=== PATIENT | male | born 1985 | race Caucasian/White ===

== ENCOUNTER 2018-07-01 15:02 | Emergency (ER) | payer MEDICAID, OTHER ==
[~2018-07-01] VITALS: Ht 165.1 cm; Wt 63.6 kg
[~2018-07-01 15:02] MED LIST: OLAN5TAB2 PO; PARO37.512 PO
[2018-07-01] MEDS ORDERED: PARO20TA24 PO (15:20)
[2018-07-01 17:03] VITALS: BP 120/68
== END 2018-07-01 17:13 | disposition home or self-care (01) ==
LOC: EMS 15:04
DX: F20.9 Schizophrenia, unspecified (principal); F32.9 Major depressive disorder, single episode, unspecified; F17.210 Nicotine dependence, cigarettes, uncomplicated; Z76.0 Encounter for issue of repeat prescription
CPT/HCPCS: 99406

== ENCOUNTER 2020-01-24 02:58 | Emergency (ER) | payer OTHER ==
[~2020-01-24] VITALS: Ht 170.2 cm; Wt 63.6 kg
[~2020-01-24 02:58] MED LIST changes: +PARO-38 PO; -PARO37.512 PO
[2020-01-24] MEDS ORDERED: PERTUSS(ACELL),DIPH,TET VAC/PF 0.5 ML VIAL IM ONE (03:45)
[2020-01-24] MEDS ORDERED: BACITRACIN 0.9 GM PACKET OINTMENT TP ONE (05:15)
[2020-01-24 05:41] VITALS: BP 136/74
== END 2020-01-24 05:40 | disposition home or self-care (01) ==
LOC: EMS 03:01
DX: S00.01XA Abrasion of scalp, initial encounter (principal); M25.532 Pain in left wrist; F32.9 Major depressive disorder, single episode, unspecified; F20.9 Schizophrenia, unspecified; F17.210 Nicotine dependence, cigarettes, uncomplicated; Y35.811A Legal intervention involving manhandling, law enforcement official injured, initial encounter; Y93.89 Activity, other specified; Y92.89 Other specified places as the place of occurrence of the external cause; Y99.8 Other external cause status
CPT/HCPCS: 70450; 72125; 90471; 90715

== ENCOUNTER 2020-11-29 12:59 | Emergency (ER) | payer OTHER ==
[~2020-11-29] VITALS: Ht 167.6 cm; Wt 104.5 kg
[~2020-11-29 12:59] MED LIST changes: -OLAN5TAB2 PO; +OLAN5TAB52 PO
[2020-11-29 13:20] VITALS: BP 112/68
== END 2020-11-29 14:38 | disposition home or self-care (01) ==
LOC: EMS 12:59
DX: H60.91 Unspecified otitis externa, right ear (principal); F32.9 Major depressive disorder, single episode, unspecified; F20.9 Schizophrenia, unspecified; F17.210 Nicotine dependence, cigarettes, uncomplicated; Z79.899 Other long term (current) drug therapy
CPT/HCPCS: 99283

== ENCOUNTER 2020-11-29 19:45 | Inpatient (IN) | payer MEDICAID, OTHER ==
[~2020-11-29] VITALS: Ht 167.6 cm; Wt 61.0 kg
[2020-11-29 21:12] LABS: BASOPHILS % (AUTO) 0.2 % (0.0-2.0); EOSINOPHILS % (AUTO) 0.2 % (1.0-6.0); HEMATOCRIT 33.3 % (41-53); HEMOGLOBIN 10.9 g/dL (13.5-17.5); LYMPHOCYTES # (AUTO) 1.7 K/uL (1.0-4.8); LYMPHOCYTES % (AUTO) 30.2 % (22.0-44.0); MEAN CORPUSCULAR HEMOGLOBIN 28.7 pg (26.0-34.0); MEAN CORPUSCULAR HGB CONC 32.6 G/dL (31.0-37.0); MEAN CORPUSCULAR VOLUME 88 fL (80-100); MONOCYTES # (AUTO) 0.4 K/uL (0.1-1.0); MONOCYTES % (AUTO) 6.4 % (2.0-9.0); NEUTROPHILS # (AUTO) 3.5 K/uL (1.8-7.7); PLATELET COUNT (AUTO) 170 K/uL (150-450); RED CELL DISTRIBUTION WIDTH 15.9 % (11.5-14.5)
[2020-11-29] MEDS ORDERED: ZOLPIDEM TARTRATE 10 MG TABLET PO PRN (21:15)
[2020-11-29] MEDS ORDERED: OLANZapine 5 MG RAPDIS TABLET PO PRN (21:15)
[2020-11-29 21:25] LABS: ANION GAP 7 mmol/L (8-16); CARBON DIOXIDE 30 mmol/L (22-29); CHLORIDE 106 mmol/L (98-107); GLOMERULAR FILTR. RATE CALC > 60 mL/min (>60); GLUCOSE,RANDOM 131 mg/dL (70-110); POTASSIUM 3.6 mmol/L (3.5-5.1); SODIUM SERUM 143 mmol/L (136-145); UREA NITROGEN, BLOOD 17 mg/dL (7-18)
[2020-11-29 21:31] LABS: ALANINE AMINOTRANSFERASE 18 U/L (12-78); ALBUMIN 3.3 g/dL (3.4-5.0); ALKALINE PHOSPHATASE 100 U/L (46-116); ASPARTATE AMINOTRANSFERASE 15 U/L (15-37); BILIRUBIN,TOTAL 0.1 mg/dL (0.1-1.0); TOTAL PROTEIN, SERUM 6.5 g/dL (6.4-8.2)
[2020-11-29 21:56] LABS: AMPHET/METH SCREEN,URINE NEGATIVE (NEGATIVE); BARBITURATE SCREEN, URINE NEGATIVE (NEGATIVE); BENZODIAZEPINES SCREEN,URINE NEGATIVE (NEGATIVE); CANNABINOID SCREEN,URINE POSITIVE (NEGATIVE); COCAINE SCREEN,URINE NEGATIVE (NEGATIVE); METHADONE SCREEN, URINE NEGATIVE (NEGATIVE); OPIATE SCREEN,URINE NEGATIVE (NEGATIVE)
[2020-11-29 22:08] LABS: PHENCYCLIDINE SCREEN,URINE NEGATIVE (NEGATIVE)
[2020-11-29 22:56] LABS: COVID AG,FIA SOURCE NASOPHARYNGEAL
[2020-11-30 06:40] VITALS: BP 121/81
[2020-11-30] MEDS ORDERED: BENZOCAINE/MENTHOL LOZENGE PO PRN (07:00)
[2020-11-30] MEDS ORDERED: DOCUSATE SODIUM 100 MG CAPSULE PO PRN (07:00)
[2020-11-30] MEDS ORDERED: ONDANSETRON HCL 4 MG TABLET PO PRN (07:00)
[2020-11-30] MEDS ORDERED: LOPERAMIDE HCL 2 MG CAPSULE PO PRN (07:00)
[2020-11-30] MEDS ORDERED: OMEPRAZOLE 20 MG CAPSULE PO PRN (07:00)
[2020-11-30] MEDS ORDERED: IBUPROFEN 600 MG TABLET PO PRN (07:00)
[2020-11-30] MEDS ORDERED: ALBUTEROL SULFATE HFA 90 MCG/PUFF 8 GM INHALER IH PRN (07:00)
[2020-11-30] MEDS ORDERED: ACETAMINOPHEN 325 MG TABLET PO PRN (07:00)
[2020-11-30] MEDS ORDERED: BACITRACIN 28 GM OINTMENT TP PRN (07:00)
[2020-11-30] MEDS ORDERED: CloNIDine HCL 0.1 MG TABLET PO PRN (07:00)
[2020-11-30] MEDS ORDERED: PETROLATUM,WHITE 28 GM JELLY TP PRN (07:00)
[2020-11-30] MEDS ORDERED: MAG HYDROX/AL HYDROX/SIMETH ES 30 ML SUSPENSION UDCUP PO PRN (07:00)
[2020-11-30] MEDS ORDERED: MAGNESIUM HYDROXIDE SUSPENSION 30 ML UDCUP PO PRN (07:00)
[2020-11-30] MEDS: LORazepam 2 MG TABLET PO PRN (09:36)
[2020-11-30 10:13] LABS: CHOL/HDL RATIO 3.1 (4.2-7.3)
[2020-11-30 10:20] VITALS: BP 107/71
[2020-11-30 10:22] VITALS: BP 107/71
[2020-11-30 16:16] VITALS: BP 124/72
[2020-12-01 06:55] VITALS: BP 106/65
[2020-12-01 08:19] VITALS: BP 111/70
[2020-12-01] MEDS: LORazepam 2 MG TABLET PO PRN (08:49)
[2020-12-01] MEDS ORDERED: OLAN10TA74 PO (11:46)
[2020-12-01 16:11] VITALS: BP 113/71
[2020-12-01] MEDS: OLANZapine 10 MG TABLET PO SCH (21:09)
[2020-12-02 06:29] VITALS: BP 99/62
[2020-12-02 08:19] VITALS: BP 114/64
[2020-12-02] MEDS: LORazepam 2 MG TABLET PO PRN (12:49)
[2020-12-02 16:18] VITALS: BP 108/66
[2020-12-02] MEDS: OLANZapine 10 MG TABLET PO SCH (20:27)
[2020-12-03 05:24] VITALS: BP 112/63
[2020-12-03 08:55] VITALS: BP 102/67
[2020-12-03 16:14] VITALS: BP 113/70
[2020-12-03] MEDS: OLANZapine 10 MG TABLET PO SCH (20:28)
[2020-12-04 02:03] VITALS: BP 139/89
[2020-12-04 10:01] VITALS: BP 113/76
[2020-12-04 16:12] VITALS: BP 101/66
[2020-12-04] MEDS: OLANZapine 10 MG TABLET PO SCH ×2 (20:36→20:45)
[2020-12-04] MEDS: LORazepam 2 MG TABLET PO PRN (21:13)
[2020-12-05 07:07] VITALS: BP 116/70
[2020-12-05] MEDS: LORazepam 2 MG TABLET PO PRN ×2 (08:31→18:14)
[2020-12-05 10:02] VITALS: BP 114/75
[2020-12-05] MEDS: NICOTINE 21 MG/24 HOUR PATCH TD PRN (10:09)
[2020-12-05 16:39] VITALS: BP 107/65
[2020-12-05] MEDS: OLANZapine 10 MG TABLET PO SCH (20:00)
[2020-12-06 06:33] VITALS: BP 93/64
[2020-12-06 08:28] VITALS: BP 126/81
[2020-12-06] MEDS: NICOTINE 21 MG/24 HOUR PATCH TD PRN (09:43)
[2020-12-06 16:25] VITALS: BP 111/66
[2020-12-06] MEDS: OLANZapine 10 MG TABLET PO SCH (20:10)
[2020-12-06] MEDS: LORazepam 2 MG TABLET PO PRN (20:47)
[2020-12-07 06:27] VITALS: BP 118/72
[2020-12-07 08:13] VITALS: BP 114/68
[2020-12-07] MEDS: LORazepam 2 MG TABLET PO PRN (08:20)
[2020-12-07 16:15] VITALS: BP 108/68
== END 2020-12-07 20:09 | disposition home or self-care (01) | DRG 750 ==
LOC: EMS 19:49 → B3A 11-30 02:29
PROVIDERS: ADMIT Psychiatry & Neurology Psychiatry; ATTEND Psychiatry & Neurology Psychiatry
DX: F20.9 Schizophrenia, unspecified (principal); F12.90 Cannabis use, unspecified, uncomplicated; F32.9 Major depressive disorder, single episode, unspecified; F41.9 Anxiety disorder, unspecified; G47.00 Insomnia, unspecified; K59.00 Constipation, unspecified; Z20.822 Contact with and (suspected) exposure to COVID-19; Z87.891 Personal history of nicotine dependence; Z79.899 Other long term (current) drug therapy
CPT/HCPCS: 80053; 80061; 85025; 99285; G0480

== ENCOUNTER 2022-01-13 05:47 | Inpatient (IN) | payer MEDICAID, OTHER ==
[~2022-01-13] VITALS: Ht 167.6 cm; Wt 57.6 kg
[~2022-01-13 05:47] MED LIST changes: +OLAN10TA74 PO; -OLAN5TAB52 PO; -PARO-38 PO
[2022-01-13] MEDS ORDERED: OLAN15TA36 PO (06:10)
[2022-01-13] MEDS ORDERED: PARO40TA72 PO (06:10)
[2022-01-13 06:25] LABS: COVID AG,FIA SOURCE NASOPHARYNGEAL
[2022-01-13 06:28] LABS: BASOPHILS % (AUTO) 0.3 % (0.0-2.0); EOSINOPHILS % (AUTO) 3.5 % (1.0-6.0); HEMATOCRIT 36.5 % (41-53); HEMOGLOBIN 11.9 g/dL (13.5-17.5); LYMPHOCYTES # (AUTO) 1.6 K/uL (1.0-4.8); LYMPHOCYTES % (AUTO) 15.2 % (22.0-44.0); MEAN CORPUSCULAR HGB CONC 32.7 G/dL (31.0-37.0); MEAN CORPUSCULAR VOLUME 86 fL (80-100); MONOCYTES # (AUTO) 0.2 K/uL (0.1-1.0); MONOCYTES % (AUTO) 2.1 % (2.0-9.0); NEUTROPHILS # (AUTO) 8.5 K/uL (1.8-7.7); NEUTROPHILS % (AUTO) 78.9 % (40.0-70.0); PLATELET COUNT (AUTO) 228 K/uL (150-450); RED BLOOD CELL COUNT(AUTO) 4.25 MIL/uL (4.50-5.90); RED CELL DISTRIBUTION WIDTH 16.7 % (11.5-14.5)
[2022-01-13] MEDS ORDERED: BACITRACIN 0.9 GM PACKET OINTMENT TP ONE (06:30)
[2022-01-13 06:54] LABS: ANION GAP 8 mmol/L (8-16); CALCIUM, TOTAL 8.9 mg/dL (8.8-10.5); CARBON DIOXIDE 28 mmol/L (22-29); CHLORIDE 107 mmol/L (98-107); CREATININE 1.25 mg/dL (0.60-1.30); GLUCOSE,RANDOM 112 mg/dL (70-110); POTASSIUM 3.5 mmol/L (3.5-5.1); SODIUM SERUM 143 mmol/L (136-145); UREA NITROGEN, BLOOD 12 mg/dL (7-18)
[2022-01-13 06:55] LABS: GLOMERULAR FILTR. RATE CALC > 60 mL/min (>60)
[2022-01-13 07:04] LABS: ALANINE AMINOTRANSFERASE 17 U/L (12-78); ALBUMIN 3.7 g/dL (3.4-5.0); ALKALINE PHOSPHATASE 128 U/L (46-116); ASPARTATE AMINOTRANSFERASE 12 U/L (15-37); BILIRUBIN,TOTAL 0.2 mg/dL (0.1-1.0); TOTAL PROTEIN, SERUM 7.3 g/dL (6.4-8.2)
[2022-01-13 10:53] LABS: AMPHET/METH SCREEN,URINE POSITIVE (NEGATIVE); BARBITURATE SCREEN, URINE NEGATIVE (NEGATIVE); BENZODIAZEPINES SCREEN,URINE NEGATIVE (NEGATIVE); CANNABINOID SCREEN,URINE POSITIVE (NEGATIVE); COCAINE SCREEN,URINE NEGATIVE (NEGATIVE); METHADONE SCREEN, URINE NEGATIVE (NEGATIVE); OPIATE SCREEN,URINE NEGATIVE (NEGATIVE)
[2022-01-13 10:54] LABS: PHENCYCLIDINE SCREEN,URINE NEGATIVE (NEGATIVE)
[2022-01-13] MEDS ORDERED: HALOPERIDOL 5 MG TABLET PO PRN (11:00)
[2022-01-13 13:13] VITALS: BP 117/84
[2022-01-13 17:38] VITALS: BP 104/67
[2022-01-13] MEDS ORDERED: OLANZapine 10 MG TABLET PO SCH (21:00)
[2022-01-13] MEDS: LORazepam 2 MG TABLET PO PRN (21:19)
[2022-01-14 08:47] VITALS: BP 112/69
[2022-01-14] MEDS ORDERED: LOPERAMIDE HCL 2 MG CAPSULE PO PRN (13:15)
[2022-01-14] MEDS ORDERED: GuaiFENesin/D-METHORPHAN [SUGAR-FREE] 200-20MG/10 ML SYRUP UDCUP PO PRN (13:15)
[2022-01-14] MEDS ORDERED: ACETAMINOPHEN 325 MG TABLET PO PRN (13:15)
[2022-01-14] MEDS ORDERED: ONDANSETRON HCL 4 MG TABLET PO PRN (13:15)
[2022-01-14] MEDS ORDERED: MAGNESIUM HYDROXIDE SUSPENSION 30 ML UDCUP PO PRN (13:15)
[2022-01-14] MEDS ORDERED: PETROLATUM,WHITE 28 GM JELLY TP PRN (13:15)
[2022-01-14] MEDS ORDERED: ALBUTEROL SULFATE HFA 90 MCG/PUFF 8 GM INHALER IH PRN (13:15)
[2022-01-14] MEDS ORDERED: IBUPROFEN 400 MG TABLET PO PRN (13:15)
[2022-01-14] MEDS ORDERED: DOCUSATE SODIUM 100 MG CAPSULE PO PRN (13:15)
[2022-01-14] MEDS ORDERED: MAG HYDROX/AL HYDROX/SIMETH ES 30 ML SUSPENSION UDCUP PO PRN (13:15)
[2022-01-14] MEDS ORDERED: CloNIDine HCL 0.1 MG TABLET PO PRN (13:15)
[2022-01-14] MEDS: PARoxetine HCL 20 MG TABLET PO SCH (13:41)
[2022-01-14 16:31] VITALS: BP 106/73
[2022-01-14] MEDS: NICOTINE 14 MG/24 HOUR PATCH TD PRN (17:45)
[2022-01-14 20:32] VITALS: BP 108/74
[2022-01-14] MEDS: OLANZapine 7.5 MG TABLET PO SCH (21:02)
[2022-01-15] MEDS: PARoxetine HCL 20 MG TABLET PO SCH (08:22)
[2022-01-15 10:26] VITALS: BP 122/82
[2022-01-15] MEDS: NICOTINE 14 MG/24 HOUR PATCH TD PRN (15:09)
[2022-01-15 16:16] VITALS: BP 119/67
[2022-01-15] MEDS: OLANZapine 7.5 MG TABLET PO SCH (20:47)
[2022-01-15 22:30] VITALS: BP 125/83
[2022-01-15] MEDS: ZOLPIDEM TARTRATE 10 MG TABLET PO PRN (22:32)
[2022-01-16 09:10] VITALS: BP 113/74
[2022-01-16] MEDS: PARoxetine HCL 20 MG TABLET PO SCH (10:14)
[2022-01-16] MEDS: LORazepam 2 MG TABLET PO PRN (19:49)
[2022-01-16 20:00] VITALS: BP 125/71
[2022-01-16] MEDS: OLANZapine 7.5 MG TABLET PO SCH (20:06)
[2022-01-17 08:12] VITALS: BP 122/88
[2022-01-17] MEDS: PARoxetine HCL 20 MG TABLET PO SCH (08:48)
[2022-01-17 16:11] VITALS: BP 126/82
[2022-01-17] MEDS: OLANZapine 7.5 MG TABLET PO SCH (20:57)
[2022-01-17] MEDS: ZOLPIDEM TARTRATE 10 MG TABLET PO PRN (21:06)
[2022-01-18 08:00] VITALS: BP 112/73
[2022-01-18] MEDS: PARoxetine HCL 20 MG TABLET PO SCH (08:30)
[2022-01-18] MEDS: NICOTINE 14 MG/24 HOUR PATCH TD PRN (12:30)
[2022-01-18 16:47] VITALS: BP 114/71
[2022-01-18] MEDS: ZOLPIDEM TARTRATE 10 MG TABLET PO PRN (20:08)
[2022-01-18] MEDS: LORazepam 2 MG TABLET PO PRN (20:08)
[2022-01-18 20:13] VITALS: BP 128/86
[2022-01-18] MEDS: OLANZapine 7.5 MG TABLET PO SCH (21:02)
[2022-01-19 08:00] VITALS: BP 114/68
[2022-01-19] MEDS: PARoxetine HCL 20 MG TABLET PO SCH (08:06)
[2022-01-19] MEDS: NICOTINE 14 MG/24 HOUR PATCH TD PRN (14:39)
[2022-01-19 16:00] VITALS: BP 115/73
[2022-01-19] MEDS: ZOLPIDEM TARTRATE 10 MG TABLET PO PRN (20:05)
[2022-01-19] MEDS: LORazepam 2 MG TABLET PO PRN (20:05)
[2022-01-19] MEDS: OLANZapine 7.5 MG TABLET PO SCH (20:15)
[2022-01-19 20:26] VITALS: BP 117/80
[2022-01-20 07:22] LABS: COVID AG,FIA SOURCE NASAL SWAB
[2022-01-20] MEDS: PARoxetine HCL 20 MG TABLET PO SCH (08:20)
[2022-01-20 08:27] VITALS: BP 115/80
[2022-01-20] MEDS: NICOTINE 14 MG/24 HOUR PATCH TD PRN (15:49)
[2022-01-20 16:52] VITALS: BP 115/68
[2022-01-20] MEDS: OLANZapine 7.5 MG TABLET PO SCH (20:05)
[2022-01-20] MEDS: ZOLPIDEM TARTRATE 10 MG TABLET PO PRN (20:05)
[2022-01-20 20:47] VITALS: BP 112/70
[2022-01-21] MEDS: PARoxetine HCL 20 MG TABLET PO SCH (08:10)
[2022-01-21 08:20] VITALS: BP 118/74
[2022-01-21] MEDS: LORazepam 2 MG TABLET PO PRN (15:21)
[2022-01-21 16:07] VITALS: BP 109/72
[2022-01-21 20:05] VITALS: BP 111/70
[2022-01-21] MEDS: OLANZapine 7.5 MG TABLET PO SCH (20:54)
[2022-01-22] MEDS: PARoxetine HCL 20 MG TABLET PO SCH (08:20)
[2022-01-22 08:40] VITALS: BP 107/64
[2022-01-22] MEDS: LORazepam 2 MG TABLET PO PRN ×2 (12:11→20:42)
[2022-01-22 16:08] VITALS: BP 104/64
[2022-01-22] MEDS: OLANZapine 7.5 MG TABLET PO SCH (20:42)
[2022-01-22] MEDS: ZOLPIDEM TARTRATE 10 MG TABLET PO PRN (20:42)
[2022-01-23] MEDS: PARoxetine HCL 20 MG TABLET PO SCH (08:01)
[2022-01-23 08:40] VITALS: BP 145/99
[2022-01-23] MEDS: NICOTINE 14 MG/24 HOUR PATCH TD PRN (11:29)
[2022-01-23] MEDS: LORazepam 2 MG TABLET PO PRN (15:55)
[2022-01-23 16:41] VITALS: BP 121/83
[2022-01-23 20:20] VITALS: BP 120/83
[2022-01-23] MEDS: ZOLPIDEM TARTRATE 10 MG TABLET PO PRN (20:20)
[2022-01-23] MEDS: OLANZapine 7.5 MG TABLET PO SCH (20:20)
[2022-01-24] MEDS: PARoxetine HCL 20 MG TABLET PO SCH (08:23)
[2022-01-24 08:25] VITALS: BP 138/92
[2022-01-24] MEDS: LORazepam 2 MG TABLET PO PRN (08:25)
[2022-01-24] MEDS ORDERED: OLAN7.5T22 PO (10:31)
[2022-01-24] MEDS ORDERED: PARO-37 PO (10:31)
== END 2022-01-24 19:06 | disposition home or self-care (01) | DRG 750 ==
LOC: EMS 05:48 → 3EC 11:58
PROVIDERS: ADMIT Psychiatry & Neurology Psychiatry; ATTEND Psychiatry & Neurology Psychiatry
DX: F25.0 Schizoaffective disorder, bipolar type (principal); E44.0 Moderate protein-calorie malnutrition; D64.9 Anemia, unspecified; F12.10 Cannabis abuse, uncomplicated; F15.10 Other stimulant abuse, uncomplicated; R73.9 Hyperglycemia, unspecified; Z20.822 Contact with and (suspected) exposure to COVID-19; Z79.899 Other long term (current) drug therapy; Z87.891 Personal history of nicotine dependence; Z91.51 Personal history of suicidal behavior; Z68.20 Body mass index [BMI] 20.0-20.9, adult; Z88.8 Allergy status to other drugs, medicaments and biological substances; Z88.5 Allergy status to narcotic agent
CPT/HCPCS: 80053; 85025; 86592; 99285; G0480

== ENCOUNTER 2022-06-23 22:29 | Inpatient (IN) | payer MEDICAID, OTHER ==
[~2022-06-23] VITALS: Ht 167.6 cm; Wt 57.2 kg
[~2022-06-23 22:29] MED LIST changes: -OLAN10TA74 PO; +OLAN7.5T22 PO; +PARO-37 PO
[2022-06-23 23:13] LABS: BASOPHILS % (AUTO) 0.4 % (0.0-2.0); EOSINOPHILS % (AUTO) 5.1 % (1.0-6.0); HEMATOCRIT 33.6 % (41-53); HEMOGLOBIN 10.7 g/dL (13.5-17.5); LYMPHOCYTES # (AUTO) 1.5 K/uL (1.0-4.8); MEAN CORPUSCULAR HEMOGLOBIN 26.1 pg (26.0-34.0); MEAN CORPUSCULAR HGB CONC 31.9 G/dL (31.0-37.0); MEAN CORPUSCULAR VOLUME 82 fL (80-100); MONOCYTES # (AUTO) 0.3 K/uL (0.1-1.0); MONOCYTES % (AUTO) 7.8 % (2.0-9.0); NEUTROPHILS # (AUTO) 2.1 K/uL (1.8-7.7); NEUTROPHILS % (AUTO) 50.7 % (40.0-70.0); PLATELET COUNT (AUTO) 220 K/uL (150-450); RED BLOOD CELL COUNT(AUTO) 4.11 MIL/uL (4.50-5.90); RED CELL DISTRIBUTION WIDTH 16.6 % (11.5-14.5)
[2022-06-23 23:22] LABS: ANION GAP 4 mmol/L (8-16); CALCIUM, TOTAL 8.3 mg/dL (8.8-10.5); CARBON DIOXIDE 29 mmol/L (22-29); CHLORIDE 104 mmol/L (98-107); CREATININE 1.27 mg/dL (0.60-1.30); GLOMERULAR FILTR. RATE CALC > 60 mL/min (>60); GLUCOSE,RANDOM 113 mg/dL (70-110); POTASSIUM 3.8 mmol/L (3.5-5.1); SODIUM SERUM 137 mmol/L (136-145); UREA NITROGEN, BLOOD 14 mg/dL (7-18)
[2022-06-23 23:29] LABS: ALANINE AMINOTRANSFERASE 22 U/L (12-78); ALBUMIN 3.4 g/dL (3.4-5.0); ALKALINE PHOSPHATASE 124 U/L (46-116); ASPARTATE AMINOTRANSFERASE 21 U/L (15-37); BILIRUBIN,TOTAL 0.1 mg/dL (0.1-1.0); TOTAL PROTEIN, SERUM 6.8 g/dL (6.4-8.2)
[2022-06-24] MEDS ORDERED: HALOPERIDOL 5 MG TABLET PO PRN (02:30)
[2022-06-24 03:26] LABS: COVID AG,FIA SOURCE NASAL SWAB
[2022-06-24 05:02] VITALS: BP 131/81
[2022-06-24 05:06] VITALS: BP 131/81
[2022-06-24 08:53] VITALS: BP 144/89
[2022-06-24] MEDS ORDERED: ACETAMINOPHEN 325 MG TABLET PO PRN (13:15)
[2022-06-24] MEDS ORDERED: IBUPROFEN 600 MG TABLET PO PRN (13:15)
[2022-06-24] MEDS ORDERED: ONDANSETRON HCL 4 MG TABLET PO PRN (13:15)
[2022-06-24] MEDS ORDERED: BENZOCAINE/MENTHOL LOZENGE PO PRN (13:15)
[2022-06-24] MEDS ORDERED: MAG HYDROX/AL HYDROX/SIMETH ES 30 ML SUSPENSION UDCUP PO PRN (13:15)
[2022-06-24] MEDS ORDERED: BACITRACIN 28 GM OINTMENT TP PRN (13:15)
[2022-06-24] MEDS ORDERED: OMEPRAZOLE 20 MG CAPSULE PO PRN (13:15)
[2022-06-24] MEDS ORDERED: DOCUSATE SODIUM 100 MG CAPSULE PO PRN (13:15)
[2022-06-24] MEDS ORDERED: LOPERAMIDE HCL 2 MG CAPSULE PO PRN (13:15)
[2022-06-24] MEDS ORDERED: CloNIDine HCL 0.1 MG TABLET PO PRN (13:15)
[2022-06-24] MEDS ORDERED: PETROLATUM,WHITE 28 GM JELLY TP PRN (13:15)
[2022-06-24] MEDS ORDERED: MAGNESIUM HYDROXIDE SUSPENSION 30 ML UDCUP PO PRN (13:15)
[2022-06-24] MEDS ORDERED: ALBUTEROL SULFATE HFA 90 MCG/PUFF 8 GM INHALER IH PRN (13:15)
[2022-06-24 16:44] VITALS: BP 120/82
[2022-06-24 21:13] VITALS: BP 131/79
[2022-06-25 08:43] VITALS: BP 119/79
[2022-06-25] MEDS: PARoxetine HCL 20 MG TABLET PO SCH (11:44)
[2022-06-25] MEDS: NICOTINE 21 MG/24 HOUR PATCH TD SCH (12:20)
[2022-06-25 16:18] VITALS: BP 133/89
[2022-06-25 20:42] VITALS: BP 108/72
[2022-06-25] MEDS: ZOLPIDEM TARTRATE 10 MG TABLET PO PRN (21:31)
[2022-06-25] MEDS: OLANZapine 7.5 MG TABLET PO SCH (21:31)
[2022-06-26 08:40] VITALS: BP 105/72
[2022-06-26] MEDS: NICOTINE 21 MG/24 HOUR PATCH TD SCH (10:43)
[2022-06-26] MEDS: PARoxetine HCL 20 MG TABLET PO SCH (10:43)
[2022-06-26 16:25] VITALS: BP 129/66
[2022-06-26] MEDS: OLANZapine 7.5 MG TABLET PO SCH (20:54)
[2022-06-26 22:12] VITALS: BP 111/71
[2022-06-26] MEDS: LORazepam 2 MG TABLET PO PRN (23:29)
[2022-06-27] MEDS: PARoxetine HCL 20 MG TABLET PO SCH (08:34)
[2022-06-27] MEDS: NICOTINE 21 MG/24 HOUR PATCH TD SCH (08:35)
[2022-06-27 09:24] VITALS: BP 109/83
[2022-06-27 16:07] VITALS: BP 110/78
[2022-06-27 20:16] VITALS: BP 133/85
[2022-06-27] MEDS: OLANZapine 7.5 MG TABLET PO SCH (20:29)
[2022-06-28 09:32] VITALS: BP 119/67
[2022-06-28] MEDS: PARoxetine HCL 20 MG TABLET PO SCH (09:48)
[2022-06-28] MEDS: NICOTINE 21 MG/24 HOUR PATCH TD SCH (09:49)
[2022-06-28 16:41] VITALS: BP 120/81
[2022-06-28] MEDS: OLANZapine 7.5 MG TABLET PO SCH (20:29)
[2022-06-28] MEDS: LORazepam 2 MG TABLET PO PRN (22:04)
[2022-06-28 22:33] VITALS: BP 123/74
[2022-06-29] MEDS: NICOTINE 21 MG/24 HOUR PATCH TD SCH (09:12)
[2022-06-29] MEDS: PARoxetine HCL 20 MG TABLET PO SCH (09:16)
[2022-06-29 10:06] VITALS: BP 125/82
[2022-06-29 17:47] VITALS: BP 136/90
[2022-06-29 20:30] VITALS: BP 144/89
[2022-06-29] MEDS: OLANZapine 7.5 MG TABLET PO SCH (21:05)
[2022-06-29] MEDS: ZOLPIDEM TARTRATE 10 MG TABLET PO PRN (22:49)
[2022-06-29] MEDS: LORazepam 2 MG TABLET PO PRN (22:49)
[2022-06-30 06:45] LABS: COVID AG,FIA SOURCE NASAL SWAB
[2022-06-30] MEDS: PARoxetine HCL 20 MG TABLET PO SCH (08:58)
[2022-06-30] MEDS: NICOTINE 21 MG/24 HOUR PATCH TD SCH (08:59)
[2022-06-30] MEDS ORDERED: OLAN7.5T22 PO (10:06)
== END 2022-06-30 17:41 | disposition home or self-care (01) | DRG 750 ==
LOC: EMS 22:29 → 3EI 06-24 03:36
PROVIDERS: ADMIT Psychiatry & Neurology Psychiatry; ATTEND Psychiatry & Neurology Psychiatry
DX: F25.9 Schizoaffective disorder, unspecified (principal); F41.9 Anxiety disorder, unspecified; K59.00 Constipation, unspecified; Z20.822 Contact with and (suspected) exposure to COVID-19; G47.00 Insomnia, unspecified; K21.9 Gastro-esophageal reflux disease without esophagitis; Z88.8 Allergy status to other drugs, medicaments and biological substances
CPT/HCPCS: 80053; 85025; 99285; G0480

== ENCOUNTER 2022-09-08 07:29 | Emergency (ER) | payer MEDICAID, OTHER ==
[~2022-09-08] VITALS: Ht 165.1 cm; Wt 59.1 kg
[~2022-09-08 07:29] MED LIST changes: -PARO-37 PO
[2022-09-08] MEDS ORDERED: PARO10TA71 PO (07:32)
[2022-09-08 07:34] VITALS: TEMP 98.5
[2022-09-08 08:39] LABS: BASOPHILS % (AUTO) 0.8 % (0.0-2.0); EOSINOPHILS % (AUTO) 1.5 % (1.0-6.0); HEMATOCRIT 39.1 % (41-53); HEMOGLOBIN 12.8 g/dL (13.5-17.5); LYMPHOCYTES # (AUTO) 1.1 K/uL (1.0-4.8); LYMPHOCYTES % (AUTO) 23.4 % (22.0-44.0); MEAN CORPUSCULAR HGB CONC 32.9 G/dL (31.0-37.0); MEAN CORPUSCULAR VOLUME 82 fL (80-100); MONOCYTES # (AUTO) 0.3 K/uL (0.1-1.0); MONOCYTES % (AUTO) 6.5 % (2.0-9.0); NEUTROPHILS # (AUTO) 3.2 K/uL (1.8-7.7); NEUTROPHILS % (AUTO) 67.8 % (40.0-70.0); PLATELET COUNT (AUTO) 199 K/uL (150-450); RED BLOOD CELL COUNT(AUTO) 4.75 MIL/uL (4.50-5.90); RED CELL DISTRIBUTION WIDTH 19.6 % (11.5-14.5)
[2022-09-08 08:45] LABS: AMPHET/METH SCREEN,URINE NEGATIVE (NEGATIVE); BARBITURATE SCREEN, URINE NEGATIVE (NEGATIVE); BENZODIAZEPINES SCREEN,URINE NEGATIVE (NEGATIVE); CANNABINOID SCREEN,URINE POSITIVE (NEGATIVE); COCAINE SCREEN,URINE NEGATIVE (NEGATIVE); METHADONE SCREEN, URINE NEGATIVE (NEGATIVE); OPIATE SCREEN,URINE NEGATIVE (NEGATIVE); PHENCYCLIDINE SCREEN,URINE NEGATIVE (NEGATIVE)
[2022-09-08 08:47] LABS: ANION GAP 9 mmol/L (8-16); CALCIUM, TOTAL 9.1 mg/dL (8.8-10.5); CARBON DIOXIDE 29 mmol/L (22-29); CHLORIDE 102 mmol/L (98-107); GLOMERULAR FILTR. RATE CALC > 60 mL/min (>60); GLUCOSE,RANDOM 117 mg/dL (70-110); POTASSIUM 3.7 mmol/L (3.5-5.1); SODIUM SERUM 140 mmol/L (136-145)
[2022-09-08 08:53] LABS: ALANINE AMINOTRANSFERASE 45 U/L (12-78); ALBUMIN 3.6 g/dL (3.4-5.0); ALKALINE PHOSPHATASE 103 U/L (46-116); ASPARTATE AMINOTRANSFERASE 21 U/L (15-37); BILIRUBIN,TOTAL 0.3 mg/dL (0.1-1.0); TOTAL PROTEIN, SERUM 7.6 g/dL (6.4-8.2)
[2022-09-08 09:56] LABS: COVID AG,FIA SOURCE NASAL SWAB
[2022-09-08] MEDS ORDERED: OLANZapine 5 MG TABLET PO ONE (10:00)
[2022-09-08 10:58] VITALS: BP 122/81; PULSE 98; RESP 16
== END 2022-09-08 11:00 | disposition home or self-care (01) ==
LOC: EMS 07:32
DX: F25.0 Schizoaffective disorder, bipolar type (principal); F17.210 Nicotine dependence, cigarettes, uncomplicated; Z88.8 Allergy status to other drugs, medicaments and biological substances; Z20.822 Contact with and (suspected) exposure to COVID-19
CPT/HCPCS: 99284; 87426; 80053; 85025; 36415; 80307 ×2; G0480